=== PATIENT | male | born 1965 | race Caucasian/White ===

== ENCOUNTER → 2022-05-12 | Outpatient (CLI) | payer OTHER, SELFPAY ==
--- NOTE | 2022-05-12 13:45 | MRI_ITS ---
STUDY: MRI CERVICAL SPINE WITHOUT CONTRAST REASON FOR EXAM: Male, 56 years old. CERVICAL DISC DISPLACEMENT TECHNIQUE: Standardized fat and water weighted pulse sequences were obtained in the sagittal and axial planes. COMPARISON: None FINDINGS: Normal foramen magnum and brainstem-cervical cord junction. Normal craniovertebral junction. Normal anterior atlantoaxial articulation. Irregularities noted in the odontoid process possibly degenerative in nature or representing old trauma. No acute edema is identified. There is bilateral maxillary sinus disease. Normal cervical lordosis. Normal vertebral bodies and posterior osseous elements. C2-3: Normal endplates. Normal disc height, signal and morphology. Normal central canal and intervertebral neural foramina. C3-4: Normal endplates. Normal disc height, signal and morphology. Normal central canal and intervertebral neural foramina. C4-5: Normal endplates. Normal disc height, signal and morphology. Normal central canal and intervertebral neural foramina. C5-6: There is broad-based disc herniation with moderate bilateral foraminal stenosis. There is mild effacement of the ventral CSF space without significant spinal canal stenosis. C6-7: There is mild broad-based disc herniation with mild bilateral foraminal stenosis. There is no significant spinal canal stenosis. C7-T1: Normal endplates. Normal disc height, signal and morphology. Normal central canal and intervertebral neural foramina. At T1-T2 through T3-T4: Only visualized on the sagittal images are mild broad-based disc herniations without significant foraminal or spinal canal stenosis. Normal cervical cord. Normal visualized soft tissue structures. MRI/Spine Cervical (Routine) IMPRESSION: Degenerative changes or old trauma involving the odontoid process. Disc herniation at C5-C6 and C6-C7 with bilateral foraminal stenosis. Mild effacement of the ventral CSF space at C5-C6. Additional disc herniations in the upper thoracic spine without significant foraminal or spinal canal stenosis. Electronically Signed: Shukri Frausto MD at 14:50 EST ,
== END | disposition home or self-care (01) ==
PROVIDERS: Referring Provider Orthopaedic Surgery; Visit Provider Orthopaedic Surgery
DX: M48.02 Spinal stenosis, cervical region (principal); M47.22 Other spondylosis with radiculopathy, cervical region; M50.30 Other cervical disc degeneration, unspecified cervical region
CPT/HCPCS: 72141